=== PATIENT | female | born 1990 | race African-American/Black ===

== ENCOUNTER 2024-05-20 17:12 | Emergency (ER) | payer MEDICAID, OTHER ==
[~2024-05-20] VITALS: Ht 165.1 cm; Wt 78.0 kg
[~2024-05-20 17:12] MED LIST: IBUP-2029 MT
[2024-05-20 17:18] VITALS: O2SAT 100
[2024-05-20] MEDS: HYDRALAZINE 20MG/ML VIAL IV ONE (18:13)
[2024-05-20] MEDS: SODIUM CHLORIDE 0.9% 1,000 ML IV ONE ×2 (18:13→22:40)
[2024-05-20 18:55] LABS: CHLORIDE 108 mEq/L (98-107); HEMOGLOBIN. 10.3 g/dL (12.0-16.0); MEAN CORPUSCULAR HEMOGLOBIN 21.9 pg (28.0-32.0); MEAN CORPUSCULAR HGB CONC 32.3 g/dL (31.0-37.0); MEAN CORPUSCULAR VOLUME 67.7 fL (81.0-99.0); MEAN PLATELET VOLUME 7.9 fl (7.4-10.4); PLATELET 492 x1000/uL (130-400); POTASSIUM 4.8 mEq/L (3.5-5.1); RED BLOOD CELL COUNT 4.73 mill/uL (4.2-5.4); RED CELL DISTRIBUTION WIDTH 17.9 % (11.6-14.6); SODIUM 139 mEq/L (136-145); WHITE BLOOD COUNT 8.3 x1000/uL (4.5-11.0)
[2024-05-20 18:56] LABS: CARBON DIOXIDE 25 mEq/L (21-32)
[2024-05-20 18:57] LABS: CALCIUM 8.9 mg/dL (8.7-10.4)
[2024-05-20 18:58] LABS: ADD RBC MORPHOLOGY YES; DIFFERENTIAL COMMENT 1
[2024-05-20 18:59] LABS: HCG SCREEN NEGATIVE
[2024-05-20 19:01] LABS: CREATININE 0.8 mg/dL (0.6-1.0); GLUCOSE 132 mg/dL (70-105); UREA NITROGEN BLOOD 9 mg/dL (9-23)
[2024-05-20 19:03] LABS: LACTIC ACID 2.3 mmol/L (0.4-2.0); TROPONIN I HIGH SENSITIVITY < 4 ng/L (3.0-34)
[2024-05-20 19:17] LABS: ANISOCYTOSIS 1+; HYPOCHROMASIA 2+; MICROCYTOSIS 3+; PLATELET ESTIMATE INCREASED
[2024-05-20 19:21] LABS: CLARITY URINE CLEAR (CLEAR); COLOR URINE YELLOW (YELLOW); GLUCOSE URINE NEGATIVE (NEGATIVE); KETONES URINE NEGATIVE (NEGATIVE); LEUKOCYTE ESTERASE URINE NEGATIVE (NEGATIVE); NITRITE URINE NEGATIVE (NEGATIVE); OCCULT BLOOD URINE NEGATIVE (NEGATIVE); PH URINE 7.5 (4.5-8.0); PROTEIN URINE NEGATIVE (NEGATIVE); SPECIFIC GRAVITY URINE 1.019 (1.005-1.030)
[2024-05-20 19:35] VITALS: TEMP 98.3
[2024-05-20 19:37] LABS: *AMPHETAMINES SCREEN URINE NEGATIVE (NEGATIVE); *BARBITURATES SCREEN URINE NEGATIVE (NEGATIVE); *BENZODIAZEPINES SCREEN URINE NEGATIVE (NEGATIVE); *COCAINE SCREEN URINE NEGATIVE (NEGATIVE); CANNABINOID URINE SCREEN NEGATIVE (NEGATIVE); ECSTASY MDMA SCREEN URINE NEGATIVE (NEGATIVE); METHADONE URINE SCREEN NEGATIVE (NEGATIVE); OPIATES URINE SCREEN NEGATIVE (NEGATIVE); PHENCYCLIDINE URINE SCREEN NEGATIVE (NEGATIVE)
[2024-05-20 20:07] LABS: INR 0.9; PROTHROMBIN TIME 10.2 sec (9.6-11.0)
[2024-05-20] MEDS: METOPROLOL TARTRATE 5MG/5ML VIAL IV ONE (20:14)
[2024-05-20] MEDS ORDERED: HYDRALAZINE 20MG/ML VIAL IV STA (20:38)
[2024-05-20] MEDS ORDERED: CLONIDINE 0.1MG TABLET PO ONE (20:45)
[2024-05-20 21:55] VITALS: BP 188/86; PULSE 92; RESP 18
[2024-05-20] MEDS: CLONIDINE 0.1MG TABLET PO NR (22:48)
[2024-05-20] MEDS: HYDRALAZINE 20MG/ML VIAL IV NR (22:48)
== END 2024-05-20 23:00 | disposition left against medical advice (07) ==
LOC: ER 18:17 → EDBEDREQ 20:47 → EDBEDREQTM 20:47 → ER 23:00
DX: I16.0 Hypertensive urgency (principal); R55 Syncope and collapse; I10 Essential (primary) hypertension
CPT/HCPCS: 99285; 96374; 70450; 96361; 96375; 80305; 80048; 81003; 84703; 83605; 85025; 85610; 84484; 36415; 93005; J0360; J3490; J7030